=== PATIENT | male | born 1995 | race Caucasian/White ===

== ENCOUNTER 2021-06-25 00:43 | Emergency (ER) | payer SELFPAY ==
--- NOTE | 2021-06-25 01:29 | EDM.PDOCBH ---
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 He has been drinking daily for a long time, recently got fired from his job for showing up for work drunk, and he has a 1-year-old child from a previous relationship who he is not allowed to see. She does not have a restraining order against him. He has no physical symptoms such as nausea or vomiting, shortness of breath or fever. He just came into get help. He feels he needs help because he is getting depressed about not being able to see his child and not having control of his drinking. He is not suicidal, has not harmed himself in the past intentionally and has no plan on doing so. Onset: Unknown/Unsure Duration: Chronic Associated Symptoms: Reports: No Other Symptoms - Related Data Allergies Allergy/AdvReac Type Severity Reaction Status Date / Time No Known Allergies Allergy Verified 06/25/21 01:03 Home Meds: Home Meds NK [No Known Home Meds] 08/01/17 [History] Past Medical History - Past Health History Medical/Surgical History: Denies Medical/Surgical History Psychiatric History: Reports: Addiction Social & Family History - Tobacco Use Tobacco Use Comment: pt stated he has smoked cigarettes for "about 2 months" and smokes "about a pack" per day - Alcohol Use Days Per Week of Alcohol Use: 7 Number of Drinks Per Day: 24 Total Drinks Per Week: 168 Date of Last Drink: 06/25/21 Time of Last Drink: 19:00 - Recreational Drug Use Recreational Drug Use: Yes Drug Use in Last 12 Months: Yes Recreational Drug Type: Reports: Amphetamines (Speed), Ativan, Benzodiazepines, Cocaine, Ecstasy, Fentanyl, Heroin, Marijuana/Hashish, Methamphetamine, Oxycodone, Valium, Vicodin, Xanax Recreational Drug Use Frequency: Daily ED ROS GENERAL - Review of Systems Review Of Systems: See Below Constitutional: Denies: Fever, Chills HEENT: Denies: Vision Change Respiratory: Denies: Shortness of Breath Cardiovascular: Denies: Chest Pain GI/Abdominal: Denies: Abdominal Pain, Diarrhea, Nausea, Vomiting : Reports: No Symptoms Musculoskeletal: Reports: No Symptoms Skin: Reports: No Symptoms Neurological: Denies: Headache Psychiatric: Reports: Depression. Denies: Homicidal Ideation, Suicidal Ideation ED EXAM, BEHAVIORAL HEALTH - Physical Exam Exam: See Below Exam Limited By: No Limitations General Appearance: Alert, No Apparent Distress Eye Exam: Bilateral Eye: Normal Inspection Head: Atraumatic Respiratory/Chest: No Respiratory Distress, Lungs Clear Cardiovascular: Regular Rate, Rhythm, Tachycardia (Mild tachycardia) GI/Abdominal: Soft, Non-Tender Extremities: Normal Inspection Neurological: Alert, Oriented x 3 Psychiatric: Depressed Mood, Flat Affect, Poor Eye Contact Skin Exam: Warm, Dry COURSE, BEHAVIORAL HEALTH COMP - Course Vital Signs: Last Vital Signs Temp 97.9 F 06/25/21 06:21 Pulse 101 H 06/25/21 06:21 Resp 12 06/25/21 06:21 BP 135/84 06/25/21 06:21 Pulse Ox 97 06/25/21 06:21 Orders, Labs, Meds: Laboratory Tests 06/25/21 06/25/21 06/25/21 Range/Units 01:49 01:49 06:21 Urine Opiates Screen Negative (NEGATIVE) Ur Oxycodone Screen Negative (NEGATIVE) Urine Methadone Screen Negative (NEGATIVE) Ur Propoxyphene Screen Negative (NEGATIVE) Ur Barbiturates Screen Negative (NEGATIVE) Ur Tricyclics Screen Negative (NEGATIVE) Ur Phencyclidine Scrn Negative (NEGATIVE) Ur Amphetamine Screen Presumptive positive H (NEGATIVE) U Methamphetamines Scrn Presumptive positive H (NEGATIVE) Urine MDMA Screen Presumptive positive H (NEGATIVE) U Benzodiazepines Scrn Negative (NEGATIVE) U Cocaine Metab Screen Negative (NEGATIVE) U Marijuana (THC) Screen Presumptive positive H (NEGATIVE) Ethyl Alcohol < 3 mg/dL SARS CoV-2 RNA Rapid IVAN Positive H Re-Assessment/Re-Exam: Urine drug screen and EtOH will be obtained and we will contact [facility] to see if [facility] have available beds. EtOH came back negative, urine drug screen is still pending. Unfortunately he tested Covid positive without any symptoms so this will limit our discharge options. Departure - Departure Time of Disposition: 11:29 Disposition: Against Medical Advice 07 Clinical Impression: Polysubstance abuse - Discharge Information Referrals: PCP,None [Primary Care Provider] - Forms: ED Department Discharge Care Plan Goals: Patient has to be discharged, he "knows what to do". Strongly advised to avoid abusing alcohol and chemicals in the future. Sepsis Event Note (ED) - Evaluation Sepsis Screening Result: No Definite Risk
[2021-06-25] MEDS ORDERED: Nicotine 14 MG/24 Hr Patch TRDERM ONE (02:16)
[2021-06-25 06:22] VITALS: BP 135/84; PULSE 101
== END 2021-06-25 11:20 | disposition left against medical advice (07) ==
LOC: JP.ED 00:43
DX: U07.1 COVID-19 (principal); F19.10 Other psychoactive substance abuse, uncomplicated; F17.210 Nicotine dependence, cigarettes, uncomplicated
CPT/HCPCS: 36415; 80305-QW; 80307; 99284; U0002